=== PATIENT | female | born 1985 | race Caucasian/White ===

== ENCOUNTER 2022-04-12 17:14 | Outpatient (REF) | payer SELFPAY ==
--- NOTE | 2022-04-12 16:30 | PAPFT_PTH ---
PATIENT: Joana Lizarraga LOC: [facility]#:[id number] AGE/SX: 36/F ROOM: RE04/12/[address]: Veronica Martin : 1985 BED: DIS: 04/12/2022 SPEC #: [id number] RECD: 04/13/22 12:57 STATUS: JAYME REShayy #: [id number] LILIA: 04/12/22 16:[address]: Veronica Martin DEPT: [facility] Cytology RECD BY: Carmita Ernst Tissues: 1 - CX/ENDOCX FOR PAP SMEARS Procedures: PAP THIN PREP/UVM Screening HPV DNA PROBE Comments: [id number]
== END 2022-04-12 17:15 | disposition home or self-care (01) ==
LOC: NCHCN 17:14
PROVIDERS: PCP Physician Assistant Medical; Visit Provider Physician Assistant Medical
DX: Z12.4 Encounter for screening for malignant neoplasm of cervix (principal); Z11.51 Encounter for screening for human papillomavirus (HPV)
CPT/HCPCS: 88142; 87624

== ENCOUNTER 2022-12-06 17:10 | Outpatient (REF) | payer SELFPAY ==
[2022-12-06 19:50] LABS: HCT 41.6 % (36.0-46.0); HGB 13.9 g/dL (11.2-15.7); MCH 30.7 pg (27.0-33.0); MCHC 33.4 % (32.0-36.0); MCV 92 fL (80-95); Platelet Count 164 10^3/uL (130-400); RBC 4.53 10^6/uL (3.93-5.22); RDW 12.4 % (11.7-14.6); RDW-SD 42.1 fL; WBC 6.33 10^3/uL (4.4-10.8)
[2022-12-06 20:07] LABS: ALT 25 U/L (14-59); AST 23 U/L (15-37); Albumin 3.9 g/dL (3.4-5.0); Alkaline Phosphatase 41 U/L (46-116); Anion Gap 5.4 mmol/L (3-11); BUN 14 mg/dL (7-18); Bilirubin, Total 0.5 mg/dL (0.2-1.0); CO2 26.6 mmol/L (21.0-32.0); CREATININE 0.9 mg/dL (0.55-1.02); Calcium 9.1 mg/dL (8.5-10.1); Chloride 105 mmol/L (98-107); Estimated GFR 83.92 (mL/min/1.73m2); Glucose 80 mg/dL (74-106); Magnesium 2.1 mg/dL (1.8-2.4); Potassium 3.9 mmol/L (3.5-5.1); Sodium 137 mmol/L (136-145); TSH (W/Ref FT4) 4.28 uIU/mL (0.36-3.74); Total Protein 7.4 g/dL (6.4-8.2)
[2022-12-06 20:44] LABS: FREE T4 0.85 ng/dL (0.76-1.46)
== END 2022-12-06 17:11 | disposition home or self-care (01) ==
LOC: NCHCN 17:10
PROVIDERS: PCP Physician Assistant Medical; Visit Provider Physician Assistant Medical
DX: G47.00 Insomnia, unspecified (principal); R53.83 Other fatigue
CPT/HCPCS: 80053; 85027; 83735; 84439; 84443

== ENCOUNTER 2024-10-06 16:40 | Outpatient (REF) | payer SELFPAY ==
[2024-10-08 11:26] LABS: Chlamydia Result Negative (Negative); GC Result Negative (Negative)
== END 2024-10-06 16:41 | disposition home or self-care (01) ==
LOC: LBN 16:40
PROVIDERS: PCP Physician Assistant Medical; Visit Provider Obstetrics & Gynecology
DX: Z30.9 Encounter for contraceptive management, unspecified (principal)
CPT/HCPCS: 87491; 87591